=== PATIENT | female | born 1935 | race American Indian/Alaskan Native ===

== ENCOUNTER 2018-12-17 12:22 | Inpatient (IN) | payer MEDICARE ==
--- NOTE | 2018-12-17 13:42 | Emergency Department Report ---
ED Altered Mental Status HPI - General Chief Complaint: Altered Mental Status Stated Complaint: AMS Time Seen by Provider: 12/17/18 12:54 Source: EMS Mode of arrival: Stretcher Limitations: No Limitations - History of Present Illness Initial Comments: 83-year-old female the past medical history hypertension, [id number]-edyhtitis diabetes, and dementia presents to Hospital with complaints of possible alteration in mental status. Patient is oriented to self only. She was sent here by the [facility] because INSTRUMENT TECHNICIAN state patient was acting different. No one is at bedside to confirm patient's baseline mental status given her history of Alzheimer's dementia. Patient denies any complaints and states she feels fine. She was sent with her MAR from the [facility]. EMS noted bradycardia as documented on triage note however, patient does take metoprolol 50 mg twice a day and does not have signs of hypotension upon arrival. at 2:45p I called the number for [facility] provided at [phone] and the nu mber is disconnected I called the cell number listed at [phone] and was provided the number [phone] for the [facility] and was able to speak to FAUSTINA Hammonds (on secon call attempt) who is the health transportation dispatch manager. She states patient was resting on the couch while she was passing out snacks. Then she noticed that patient was not responding. Patient's eyes were closed, she had generalized weakness, and was not speaking. There was no change despite tactile and verbal stimuli. This continued until EMS arrival. She states patient is often confused and alert and oriented to self only at Baseline and is typically very talkative. I requested for registration to update [facility] phone number. - Related Data Home Medications Medication Instructions Recorded Confirmed Last Taken Alendronate Sodium 35 mg PO QWEEK 12/17/18 12/17/18 12/16/18 Amlodipine Besylate [Norvasc] 5 mg PO QDAY 12/17/18 12/17/18 12/17/18 Cholecalciferol (Vitamin D3) 2,000 unit PO QDAY 12/17/18 12/17/18 Unknown [Vitamin D3 2,000 UNIT CAP] Lisinopril [Zestril] 5 mg PO QDAY 12/17/18 12/17/18 12/17/18 Memantine HCl/Donepezil HCl 1 each PO QDAY 12/17/18 12/17/18 12/17/18 [Namzaric 28 mg-10 mg Capsule] Metoprolol [Lopressor] 25 mg PO BID 12/17/18 12/17/18 12/17/18 08:00 Multivit-Min/Iron/Folic/Lutein 1 each PO DAILY 12/17/18 12/17/18 12/17/18 [Multivitamin Women 50 Plus Tab] QUEtiapine [SEROquel] 25 mg PO HS 12/17/18 12/17/18 Unknown Simvastatin 20 mg PO DAILY 12/17/18 12/17/18 Unknown Spironolactone [Aldactone] 25 mg PO QDAY 12/17/18 12/17/18 Unknown metFORMIN XR [Glucophage XR] 1,000 mg PO QDAY 12/17/18 12/17/18 Unknown Allergies Allergy/AdvReac Type Severity Reaction Status Date / Time No Known Allergies Allergy Unverified 12/17/18 12:42 ED Review of Systems ROS: Stated complaint: AMS Other details as noted in HPI Comment: All other systems reviewed and negative ED Past Medical Hx - Past Medical History Hx Hypertension: Yes Hx CVA: Yes Hx Diabetes: Yes Additional medical history: Alzheimers - Social History Smoking Status: Never Smoker Substance Use Type: None - Medications Home Medications: Home Medications Medication Instructions Recorded Confirmed Last Taken Type Alendronate Sodium 35 mg PO QWEEK 12/17/18 12/17/18 12/16/18 History Amlodipine Besylate [Norvasc] 5 mg PO QDAY 12/17/18 12/17/18 12/17/18 History Cholecalciferol (Vitamin D3) 2,000 unit PO QDAY 12/17/18 12/17/18 Unknown History [Vitamin D3 2,000 UNIT CAP] Lisinopril [Zestril] 5 mg PO QDAY 12/17/18 12/17/18 12/17/18 History Memantine HCl/Donepezil HCl 1 each PO QDAY 12/17/18 12/17/18 12/17/18 History [Namzaric 28 mg-10 mg Capsule] Metoprolol [Lopressor] 25 mg PO BID 12/17/18 12/17/18 12/17/18 08:00 History Multivit-Min/Iron/Folic/Lutein 1 each PO DAILY 12/17/18 12/17/18 12/17/18 History [Multivitamin Women 50 Plus Tab] QUEtiapine [SEROquel] 25 mg PO HS 12/17/18 12/17/18 Unknown History Simvastatin 20 mg PO DAILY 12/17/18 12/17/18 Unknown History Spironolactone [Aldactone] 25 mg PO QDAY 12/17/18 12/17/18 Unknown History metFORMIN XR [Glucophage XR] 1,000 mg PO QDAY 12/17/18 12/17/18 Unknown History ED Physical Exam - General Limitations: No Limitations - Other Other exam information: General: No limitations, patient is alert in no acute distress Head exam: Atraumatic, normocephalic Eyes exam: Normal appearance, pupils equal reactive to light, extraocular movements intact ENT: Moist mucous membrane, normal oropharynx Neck exam: Normal inspection, full range of motion, no meningismus nontender Respiratory exam: Clear to auscultation bilateral, no wheezes, rales, crackles Cardiovascular: Normal rate and rhythm, normal heart sounds Abdomen: Soft, nondistended, and nontender, with normal bowel sounds, no rebound, or guarding Extremity: Full range of motion normal inspection no deformity Back: Normal Inspection, full range of motion, no tenderness Neurologic: Alert, oriented x1, cranial nerves intact, no motor or sensory deficit Psychiatric: normal affect, normal mood Skin: Warm, dry, intact - Assessment Assessment Interval: Baseline - Level of Consciousness 1a. Level of Consciousness: alert/keenly responsive - LOC Questions 1b. LOC Questions: answers 1 question correctly - LOC Command 1c. LOC Commands: performs tasks correctly - Best Gaze 2. Best Gaze: normal - Visual 3. Visual: no visual loss - Facial Palsy 4. Facial Palsy: normal symmetrical movement - Motor Arm 5a. Motor Arm Left: no drift 5b. Motor Arm Right: no drift - Motor Leg 6a. Motor Leg Left: no drift 6b. Motor Leg Right: no drift (pt has baseine memory deficit) - Limb Ataxia 7. Limb Ataxia: absent - Sensory 8. Sensory: normal - Best Language 9. Best Language: no aphasia - Dysarthria 10. Dysarthria: normal - Extinction and Inattention 11. Extinction/Inattention: no abnormality - Scoring Total Score: 1 Stroke Severity: Minor Stroke ED Course Vital Signs 12/17/18 12/17/18 12/17/18 12:34 12:37 12:45 Temperature 98.2 F Pulse Rate 49 L 50 L Respiratory 9 L 15 8 L Rate Blood Pressure 206/71 Blood Pressure 206/71 [Left] O2 Sat by Pulse 100 100 Oximetry 12/17/18 12/17/18 12/17/18 13:01 13:15 13:30 Temperature Pulse Rate 48 L 54 L 51 L Respiratory 9 L 13 11 L Rate Blood Pressure 162/60 206/71 199/80 Blood Pressure [Left] O2 Sat by Pulse 100 96 100 Oximetry 12/17/18 12/17/18 12/17/18 13:45 14:01 14:15 Temperature Pulse Rate 55 L 57 L 52 L Respiratory 11 L 12 12 Rate Blood Pressure 200/75 181/66 188/67 Blood Pressure [Left] O2 Sat by Pulse 100 99 100 Oximetry 12/17/18 12/17/18 12/17/18 14:31 14:45 15:00 Temperature Pulse Rate 55 L 52 L 52 L Respiratory 11 L 10 L 8 L Rate Blood Pressure 193/82 181/64 173/66 Blood Pressure [Left] O2 Sat by Pulse 100 100 99 Oximetry 12/17/18 12/17/18 12/17/18 15:33 15:45 16:01 Temperature Pulse Rate 58 L 55 L 54 L Respiratory 19 15 11 L Rate Blood Pressure 173/66 173/66 216/94 Blood Pressure [Left] O2 Sat by Pulse 91 98 Oximetry 12/17/18 12/17/18 12/17/18 16:15 16:30 16:45 Temperature Pulse Rate 57 L 52 L 52 L Respiratory 10 L 11 L 12 Rate Blood Pressure 216/94 204/78 189/75 Blood Pressure [Left] O2 Sat by Pulse 100 99 100 Oximetry 12/17/18 12/17/18 12/17/18 17:00 17:15 17:30 Temperature Pulse Rate 53 L 54 L 55 L Respiratory 13 10 L 10 L Rate Blood Pressure 194/75 213/82 209/86 Blood Pressure [Left] O2 Sat by Pulse 100 96 98 Oximetry 12/17/18 12/17/18 12/17/18 17:45 18:01 18:15 Temperature Pulse Rate 53 L 59 L 56 L Respiratory 16 17 14 Rate Blood Pressure 195/68 202/80 181/74 Blood Pressure [Left] O2 Sat by Pulse 97 98 100 Oximetry 12/17/18 18:31 Temperature Pulse Rate 54 L Respiratory 16 Rate Blood Pressure 196/79 Blood Pressure [Left] O2 Sat by Pulse 96 Oximetry - Lab Data Result diagrams: 12/17/18 13:25 12/17/18 13:25 Lab Results 12/17/18 12/17/18 12/17/18 Range/Units 13:20 13:25 13:25 WBC 6.4 (4.5-11.0) K/mm3 RBC 3.77 (3.65-5.03) M/mm3 Hgb 12.1 (10.1-14.3) gm/dl Hct 36.8 (30.3-42.9) % MCV 98 H (79-97) fl MCH 32 (28-32) pg MCHC 33 (30-34) % RDW 14.0 (13.2-15.2) % Plt Count 301 (140-440) K/mm3 Lymph % (Auto) 38.0 H (13.4-35.0) % [place] % (Auto) 10.1 H (0.0-7.3) % Eos % (Auto) 2.4 (0.0-4.3) % Baso % (Auto) 1.3 (0.0-1.8) % Lymph # 2.5 (1.2-5.4) K/mm3 [place] # 0.7 (0.0-0.8) K/mm3 Eos # 0.2 (0.0-0.4) K/mm3 Baso # 0.1 (0.0-0.1) K/mm3 Seg Neutrophils % 48.2 (40.0-70.0) % Seg Neutrophils # 3.1 (1.8-7.7) K/mm3 Sodium 143 (137-145) mmol/L Potassium 4.6 (3.6-5.0) mmol/L Chloride 104.0 (98-107) mmol/L Carbon Dioxide 27 (22-30) mmol/L Anion Gap 17 mmol/L BUN 25 H (7-17) mg/dL Creatinine 1.1 (0.7-1.2) mg/dL Estimated GFR 57 ml/min BUN/Creatinine Ratio 23 % Glucose 126 H (65-100) mg/dL POC Glucose 146 H (70-105) Calcium 9.2 (8.4-10.2) mg/dL Magnesium 2.30 (1.7-2.3) mg/dL Total Bilirubin 0.20 (0.1-1.2) mg/dL AST 28 (5-40) units/L ALT 19 (7-56) units/L Alkaline Phosphatase 87 (35-129) units/L Troponin T < 0.010 (0.00-0.029) ng/mL Total Protein 7.7 (6.3-8.2) g/dL Albumin 4.0 (3.9-5) g/dL Albumin/Globulin Ratio 1.1 % TSH (0.270-4.200) mlU/mL Free T4 (0.76-1.46) ng/dL Urine Color (Yellow) Urine Turbidity (Clear) Urine pH (5.0-7.0) Ur Specific [place] (1.003-1.030) Urine Protein (Negative) mg/dL Urine Glucose (UA) (Negative) mg/dL Urine Ketones (Negative) mg/dL Urine Blood (Negative) Urine Nitrite (Negative) Urine Bilirubin (Negative) Urine Urobilinogen (<2.0) mg/dL Ur Leukocyte Esterase (Negative) Urine WBC (Auto) (0.0-6.0) /HPF Urine RBC (Auto) (0.0-6.0) /HPF U Epithel Cells (Auto) (0-13.0) /HPF Urine Mucus /HPF Salicylates (2.8-20.0) mg/dL Acetaminophen (10.0-30.0) ug/mL Plasma/Serum Alcohol (0-0.07) % 12/17/18 12/17/18 12/17/18 Range/Units 13:25 13:25 13:25 WBC (4.5-11.0) K/mm3 RBC (3.65-5.03) M/mm3 Hgb (10.1-14.3) gm/dl Hct (30.3-42.9) % MCV (79-97) fl MCH (28-32) pg MCHC (30-34) % RDW (13.2-15.2) % Plt Count (140-440) K/mm3 Lymph % (Auto) (13.4-35.0) % [place] % (Auto) (0.0-7.3) % Eos % (Auto) (0.0-4.3) % Baso % (Auto) (0.0-1.8) % Lymph # (1.2-5.4) K/mm3 [place] # (0.0-0.8) K/mm3 Eos # (0.0-0.4) K/mm3 Baso # (0.0-0.1) K/mm3 Seg Neutrophils % (40.0-70.0) % Seg Neutrophils # (1.8-7.7) K/mm3 Sodium (137-145) mmol/L Potassium (3.6-5.0) mmol/L Chloride (98-107) mmol/L Carbon Dioxide (22-30) mmol/L Anion Gap mmol/L BUN (7-17) mg/dL Creatinine (0.7-1.2) mg/dL Estimated GFR ml/min BUN/Creatinine Ratio % Glucose (65-100) mg/dL POC Glucose (70-105) Calcium (8.4-10.2) mg/dL Magnesium (1.7-2.3) mg/dL Total Bilirubin (0.1-1.2) mg/dL AST (5-40) units/L ALT (7-56) units/L Alkaline Phosphatase (35-129) units/L Troponin T (0.00-0.029) ng/mL Total Protein (6.3-8.2) g/dL Albumin (3.9-5) g/dL Albumin/Globulin Ratio % TSH (0.270-4.200) mlU/mL Free T4 (0.76-1.46) ng/dL Urine Color (Yellow) Urine Turbidity (Clear) Urine pH (5.0-7.0) Ur Specific [place] (1.003-1.030) Urine Protein (Negative) mg/dL Urine Glucose (UA) (Negative) mg/dL Urine Ketones (Negative) mg/dL Urine Blood (Negative) Urine Nitrite (Negative) Urine Bilirubin (Negative) Urine Urobilinogen (<2.0) mg/dL Ur Leukocyte Esterase (Negative) Urine WBC (Auto) (0.0-6.0) /HPF Urine RBC (Auto) (0.0-6.0) /HPF U Epithel Cells (Auto) (0-13.0) /HPF Urine Mucus /HPF Salicylates < 0.3 L (2.8-20.0) mg/dL Acetaminophen < 5.0 L (10.0-30.0) ug/mL Plasma/Serum Alcohol < 0.01 (0-0.07) % 12/17/18 12/17/18 Range/Units 13:25 14:28 WBC (4.5-11.0) K/mm3 RBC (3.65-5.03) M/mm3 Hgb (10.1-14.3) gm/dl Hct (30.3-42.9) % MCV (79-97) fl MCH (28-32) pg MCHC (30-34) % RDW (13.2-15.2) % Plt Count (140-440) K/mm3 Lymph % (Auto) (13.4-35.0) % [place] % (Auto) (0.0-7.3) % Eos % (Auto) (0.0-4.3) % Baso % (Auto) (0.0-1.8) % Lymph # (1.2-5.4) K/mm3 [place] # (0.0-0.8) K/mm3 Eos # (0.0-0.4) K/mm3 Baso # (0.0-0.1) K/mm3 Seg Neutrophils % (40.0-70.0) % Seg Neutrophils # (1.8-7.7) K/mm3 Sodium (137-145) mmol/L Potassium (3.6-5.0) mmol/L Chloride (98-107) mmol/L Carbon Dioxide (22-30) mmol/L Anion Gap mmol/L BUN (7-17) mg/dL Creatinine (0.7-1.2) mg/dL Estimated GFR ml/min BUN/Creatinine Ratio % Glucose (65-100) mg/dL POC Glucose (70-105) Calcium (8.4-10.2) mg/dL Magnesium (1.7-2.3) mg/dL Total Bilirubin (0.1-1.2) mg/dL AST (5-40) units/L ALT (7-56) units/L Alkaline Phosphatase (35-129) units/L Troponin T (0.00-0.029) ng/mL Total Protein (6.3-8.2) g/dL Albumin (3.9-5) g/dL Albumin/Globulin Ratio % TSH 1.830 (0.270-4.200) mlU/mL Free T4 1.07 (0.76-1.46) ng/dL Urine Color Yellow (Yellow) Urine Turbidity Slightly-cloudy (Clear) Urine pH 7.0 (5.0-7.0) Ur Specific [place] 1.014 (1.003-1.030) Urine Protein 30 mg/dl (Negative) mg/dL Urine Glucose (UA) 50 (Negative) mg/dL Urine Ketones Neg (Negative) mg/dL Urine Blood Neg (Negative) Urine Nitrite Pos (Negative) Urine Bilirubin Neg (Negative) Urine Urobilinogen < 2.0 (<2.0) mg/dL Ur Leukocyte Esterase Neg (Negative) Urine WBC (Auto) < 1.0 (0.0-6.0) /HPF Urine RBC (Auto) 2.0 (0.0-6.0) /HPF U Epithel Cells (Auto) < 1.0 (0-13.0) /HPF Urine Mucus Few /HPF Salicylates (2.8-20.0) mg/dL Acetaminophen (10.0-30.0) ug/mL Plasma/Serum Alcohol (0-0.07) % - EKG Data -: EKG Interpreted by Mi EKG shows normal: sinus rhythm, axis (qrs 40), QRS complexes (qrsd 85), ST-T waves (non-specific t abnl) Rate: bradycardia (51) When compared to previous EKG there are: previous EKG unavailable - Radiology Data Radiology results: report reviewed (ct head) CT head without contrast HISTORY: Altered Mental Status. TECHNIQUE: Axial imagin g performed from the skull apex through the skull base without the use of contrast. All CT scans at this location are performed using CT dose reduction for ALARA by means of automated exposure control. COMPARISON: None FINDINGS: Parenchyma: No acute intracranial hemorrhage or parenchymal abnormality. There is mild diffuse hypoattenuation of the white matter consistent with chronic microvascular ischemic disease. A 1.2 cm chronic focal infarct is identified in the right subinsular region. No large chronic infarct. No evidence for hemorrhage or large area of acute ischemia. Ventricles: There is mild diffuse brain atrophy with commensurate ventricular enlargement which is likely age appropriate. Soft tissues: Soft tissues including the orbits appear normal. Bones: No acute osseous abnormality. Sinuses: Sinuses and mastoid air cells are clear. IMPRESSION: Volume loss and chronic white matter changes. Chronic focal infarct in the right subinsular region. No acute intracranial process is brown ntified. - Medical Decision Making Patient had transient alteration in awareness prior to arrival but appears to be currently at baseline. Urine is nitrate positive with a leukocytosis. Culture pending and patient will be treated Rocephin for UTI. Bradycardia cardio noted and likely secondary to beta brenton use. No hypotension noted. Case discussed with hospitalist Dr. Acharya for admission after CT head results. - Differential Diagnosis dementia, delirium, UTI, encephalopathy Critical Care Time: No Critical care attestation.: If time is entered above; I have spent that time in minutes in the direct care of this critically ill patient, excluding procedure time. ED Disposition Clinical Impression: Transient alteration of awareness, Bradycardia, Dementia Disposition: OP ADMIT IP TO THIS HOSP Is pt being admited?: Yes Condition: Stable Time of Disposition: 16:00
[2018-12-17 14:00] LABS: Basophils # (Auto) 0.1 K/mm3 (0.0-0.1); Basophils % (Auto) 1.3 % (0.0-1.8); Eosinophils # (Auto) 0.2 K/mm3 (0.0-0.4); Eosinophils % (Auto) 2.4 % (0.0-4.3); Hematocrit 36.8 % (30.3-42.9); Hemoglobin 12.1 gm/dl (10.1-14.3); Lymphocytes # (Auto) 2.5 K/mm3 (1.2-5.4); Mean Corpuscular HGB Conc 33 % (30-34); Mean Corpuscular Volume 98 fl (79-97); Monocytes # (Auto) 0.7 K/mm3 (0.0-0.8); Monocytes % (Auto) 10.1 % (0.0-7.3); Platelet Count 301 K/mm3 (140-440); Red Blood Count 3.77 M/mm3 (3.65-5.03)
[2018-12-17 14:18] LABS: Alanine Aminotransferase 19 units/L (7-56); BUN/Creatinine Ratio 23; Blood Urea Nitrogen 25 mg/dL (7-17); Calcium 9.2 mg/dL (8.4-10.2); Hemolysis Index 47
[2018-12-17 14:25] LABS: Free T4 (Free Thyroxine) 1.07 ng/dL (0.76-1.46)
[2018-12-17 14:58] LABS: Bilirubin,Urine NEG (Negative); Blood,Urine NEG (Negative); Color,Urine Yellow (Yellow); Mucus,Urine FEW /HPF; Urobilinogen,Urine < 2.0 mg/dL (<2.0); WBC,Urine < 1.0 /HPF (0.0-6.0)
[2018-12-17] MEDS ORDERED: ROCEPHIN/NS 1 GM/50 ML 1 GM/50 ML BAG IV ONE (15:18)
--- NOTE | 2018-12-17 15:28 | History and Physical Report ---
History of Present Illness Chief complaint: She could not talk, and was confused History of present illness: 83 YO Female Assisted Living Facility Resident with HTN, DM, Alzheimers Dementia, CVA, Debility presents to ED for evaluation. Pt is confused with Dementia and unable to provide detailed history. Pt history taken from ED staff, as well as LONG TERM staff. As per ALS staff, the patient was in her usual state of health upon waking this morning around 0800 hrs. Pt was noticed by LONG TERM staff to be lying on the couch, unresponsive, unable to speak around lunchtime. EMS notified, and uopn arrival the patient was found to be in distress and transported to [facility]. Pt seen and evaluated in ED and a code stroke was called. Pt found to have symptoms consistent with CVA, as well as Encephalopathy, UTI, and Hypertensive Urgency with SBP of 216/94. Pt admitted to telemetry and initiated on CVA protocol with permissive HTN overnight. No further history obtainable. Neurology consulted in ED. Past History Past Medical History: diabetes, hypertension, stroke, other (Dementia) Past Surgical History: No surgical history, Other (UTO) Social history: single Family history: no significant family history (UTO) Medications and Allergies Allergies Allergy/AdvReac Type Severity Reaction Status Date / Time No Known Allergies Allergy Unverified 12/17/18 12:42 Active Meds: Active Medications Ceftriaxone Sodium (Rocephin/Ns 1 Gm/50 Ml) 1 gm in 50 mls @ 100 mls/hr IV ONCE ONE; Protocol Stop: 12/17/18 15:47 Review of Systems ROS unobtainable: due to mental status Exam - Constitutional Vitals: Temp Pulse Resp BP Pulse Ox 98.2 F 52 L 8 L 173/66 99 12/17/18 12:37 12/17/18 15:00 12/17/18 15:00 12/17/18 15:00 12/17/18 15:00 General appearance: Present: mild distress, cachectic - EENT Eyes: Present: PERRL ENT: hearing intact, clear oral mucosa - Neck Neck: Present: supple, normal ROM - Respiratory Respiratory effort: normal Respiratory: bilateral: CTA - Cardiovascular Heart Sounds: Present: S1 & S2. Absent: rub, click - Extremities Extremities: pulses symmetrical, No edema Peripheral Pulses: within normal limits - Abdominal General gastrointestinal: Present: soft, non-tender, non-distended, normal bowel sounds Female genitourinary: Present: normal - Integumentary Integumentary: Present: clear, warm, dry - Musculoskeletal Musculoskeletal: generalized weakness - Psychiatric Psychiatric: no appropriate mood/affect, no intact judgment & insight, no memory intact - Neurologic Neurologic: CNII-XII intact, moves all extremities, no gait normal Results - Labs CBC & Chem 7: 12/17/18 13:25 12/17/18 13:25 Labs: Abnormal lab results 12/17/18 12/17/18 12/17/18 Range/Units 13:20 13:25 13:25 MCV 98 H (79-97) fl Lymph % (Auto) 38.0 H (13.4-35.0) % [place] % (Auto) 10.1 H (0.0-7.3) % BUN 25 H (7-17) mg/dL Glucose 126 H (65-100) mg/dL POC Glucose 146 H (70-105) Salicylates (2.8-20.0) mg/dL Acetaminophen (10.0-30.0) ug/mL 12/17/18 12/17/18 Range/Units 13:25 13:25 MCV (79-97) fl Lymph % (Auto) (13.4-35.0) % [place] % (Auto) (0.0-7.3) % BUN (7-17) mg/dL Glucose (65-100) mg/dL POC Glucose (70-105) Salicylates < 0.3 L (2.8-20.0) mg/dL Acetaminophen < 5.0 L (10.0-30.0) ug/mL Assessment and Plan - Patient Problems (1) CVA (cerebral vascular accident) Current Visit: Yes Status: Acute Qualifiers: Laterality of affected vessel: unspecified Plan to address problem: Stroke Protocol: CT Head, Neuro check, MRI Brain, MRA Brain, Echo, Carotid doppler, Neurology consulted, PT/OT/Speech therapy, lipid panel, statin therapy, antiplatelet therapy, Case management consult for D/C planning/Placement. (2) Encephalopathy Current Visit: Yes Status: Acute Plan to address problem: CT Head, neuro check, seizure precautions, aspiration precautions, supportive care, (3) Hypertensive urgency Current Visit: Yes Status: Acute Plan to address problem: Permissive hypertension overnight. goal systolic BP overnight 170-190, IV hydralazine prn, neuro checks, (4) UTI (urinary tract infection) Current Visit: Yes Status: Acute Qualifiers: Encounter type: initial encounter Plan to address problem: IV antibiotic therapy, CBC, CMP, Urinalysis (5) Diabetes Current Visit: Yes Status: Acute Plan to address problem: ADA diet, insulin, accu check, hypoglycemia protocol (6) Debility Current Visit: Yes Status: Acute Plan to address problem: PT consulted/OT consulted, supportive care. (7) Bradycardia Current Visit: Yes Status: Acute Plan to address problem: Heart rate between 50-60 beats/min. Admit to telemetry, Echo, remote telemetry, thrroid panel, supportive care. (8) DVT prophylaxis Current Visit: Yes Status: Acute Plan to address problem: SCD to BLE while in bed, DVT prophylaxis with lovenox
--- NOTE | 2018-12-17 15:51 | Cat Scan Report ---
CT head without contrast HISTORY: Altered Mental Status. TECHNIQUE: Axial imaging performed from the skull apex through the skull base without the use of con trast. All CT scans at this location are performed using CT dose reduction for ALARA by means of aut omated exposure control. COMPARISON: None FINDINGS: Parenchyma: No acute intracranial hemorrhage or parenchymal abnormality. There is mild diffuse hypoa ttenuation of the white matter consistent with chronic microvascular ischemic disease. A 1.2 cm chron ic focal infarct is identified in the right subinsular region. No large chronic infarct. No evidence for hemorrhage or large area of acute ischemia. Ventricles: There is mild diffuse brain atrophy with commensurate ventricular enlargement which is l ikely age appropriate. Soft tissues: Soft tissues including the orbits appear normal. Bones: No acute osseous abnormality. Sinuses: Sinuses and mastoid air cells are clear. IMPRESSION: Volume loss and chronic white matter changes. Chronic focal infarct in the right subinsul ar region. No acute intracranial process is identified. Signer Name: Jey Buck Jr, MD Signed: 12/17/2018 3:47 PM Workstation Name: [id number]
[2018-12-17] MEDS ORDERED: APRESOLINE IV PRN (16:34)
[2018-12-17] MEDS ORDERED: SODIUM CHLORIDE FLUSH SYRINGE 10 ML IV PRN (16:39)
[2018-12-17] MEDS ORDERED: MILK OF MAGNESIA PO PRN (16:39)
[2018-12-17] MEDS ORDERED: PROVENTIL IH PRN (16:39)
[2018-12-17] MEDS ORDERED: ZOFRAN IV PRN (16:39)
[2018-12-17] MEDS ORDERED: DULCOLAX PR PRN (16:39)
[2018-12-17] MEDS ORDERED: TYLENOL PO PRN (16:39)
[2018-12-17] MEDS ORDERED: REGLAN PO PRN (16:39)
[2018-12-17] MEDS ORDERED: PHENERGAN PR PRN (16:39)
[2018-12-17] MEDS: PRAVACHOL PO SCH (21:31)
[2018-12-17] MEDS ORDERED: BENADRYL PO PRN (22:04)
[2018-12-18] MEDS: ROCEPHIN/NS 1 GM/50 ML 1 GM/50 ML BAG IV SCH (10:00)
--- NOTE | 2018-12-18 10:11 | Vascular Lab Report ---
"DUPLEX DOPPLER ULTRASOUND CAROTID, BILATERAL INDICATION: stroke. FINDINGS: RIGHT CAROTID: Mild plaque in the carotid bulb. Right CCA velocity: 85 cm/sec. Right ICA peak systolic velocity: 69 cm/sec. ICA/CCA PSV Ratio: 0.81. Right Vertebral Artery: Antegrade flow. LEFT CAROTID: Mild plaque in the carotid bulb. Left CCA velocity: 77 cm/sec. Left ICA peak systolic velocity: 93 cm/sec. ICA/CCA PSV Ratio: 1.2. Left Vertebral Artery: Antegrade flow. IMPRESSION: 1. Right Internal Carotid Artery: Less than 50% diameter stenosis. 2. Left Internal Carotid Artery: Less than 50% diameter stenosis. Velocity criteria are extrapolated from diameter data as defined by the Society of Radiologists in Ul trasound Consensus Conference, Radiology 2003; 229;340-346. Degree of Stenosis (%) || ICA PSV (cm/sec) || Plaque estimate (%) || ICA/CCA PSV Ratio Normal <125 None <2.0 <50 <125 <50 <2.0 50-69 125-230 50 2.0-4.0 70 but less than 100 >230 50 >4.0 Near occlusion High, low, or none visible variable Total occlusion None visible; no lumen N/A Signer Name: Rony Vargas MD Signed: 12/18/2018 10:07 AM Workstation Name: [id number]
--- NOTE | 2018-12-18 11:21 | Consultation ---
Past History Past Medical History: diabetes, hypertension, stroke, other (Dementia) Past Surgical History: No surgical history, Other (UTO) Social history: single Family history: no significant family history (UTO) Medications and Allergies Allergies Allergy/AdvReac Type Severity Reaction Status Date / Time No Known Allergies Allergy Unverified 12/17/18 12:42 Home Medications Medication Instructions Recorded Confirmed Last Taken Type Alendronate Sodium 35 mg PO QWEEK 12/17/18 12/17/18 12/16/18 History Amlodipine Besylate [Norvasc] 5 mg PO QDAY 12/17/18 12/17/18 12/17/18 History Cholecalciferol (Vitamin D3) 2,000 unit PO QDAY 12/17/18 12/17/18 Unknown History [Vitamin D3 2,000 UNIT CAP] Lisinopril [Zestril] 5 mg PO QDAY 12/17/18 12/17/18 12/17/18 History Memantine HCl/Donepezil HCl 1 each PO QDAY 12/17/18 12/17/18 12/17/18 History [Namzaric 28 mg-10 mg Capsule] Metoprolol [Lopressor] 25 mg PO BID 12/17/18 12/17/18 12/17/18 08:00 History Multivit-Min/Iron/Folic/Lutein 1 each PO DAILY 12/17/18 12/17/18 12/17/18 History [Multivitamin Women 50 Plus Tab] QUEtiapine [SEROquel] 25 mg PO HS 12/17/18 12/17/18 Unknown History Simvastatin 20 mg PO DAILY 12/17/18 12/17/18 Unknown History Spironolactone [Aldactone] 25 mg PO QDAY 12/17/18 12/17/18 Unknown History metFORMIN XR [Glucophage XR] 1,000 mg PO QDAY 12/17/18 12/17/18 Unknown History Active Meds: Active Medications Acetaminophen (Tylenol) 650 mg PO Q4H PRN PRN Reason: Pain, Mild (1-3) Albuterol (Proventil) 2.5 mg IH Q3HRT PRN PRN Reason: Shortness Of Breath Bisacodyl (Dulcolax) 10 mg MD QDAY PRN PRN Reason: Constipation Diphenhydramine HCl (Benadryl) 25 mg PO Q8H PRN PRN Reason: Itching; Sleep Last Admin: 12/17/18 23:00 Dose: 25 mg Documented by: Hydralazine HCl (Apresoline) 5 mg IV Q4HR PRN PRN Reason: Hypertension Ceftriaxone Sodium (Rocephin/Ns 1 Gm/50 Ml) 1 gm in 50 mls @ 100 mls/hr IV Q24HR [facility]; Protocol Stop: 12/19/18 23:59 Magnesium Hydroxide (Milk Of Magnesia) 30 ml PO Q4H PRN PRN Reason: Constipation Metoclopramide HCl (Reglan) 10 mg PO Q6H PRN PRN Reason: Nausea And Vomiting Ondansetron HCl (Zofran) 4 mg IV Q8H PRN PRN Reason: Nausea And Vomiting Pravastatin Sodium (Pravachol) 20 mg PO QHS [facility] Last Admin: 12/17/18 21:31 Dose: 20 mg Documented by: Promethazine HCl (Phenergan) 25 mg MD Q6H PRN PRN Reason: Nausea And Vomiting Sodium Chloride (Sodium Chloride Flush Syringe 10 Ml) 10 ml IV PRN PRN PRN Reason: LINE FLUSH Physical Examination - Vital Signs Vital Signs: Vital Signs Resp 9 L 12/17/18 12:34 Results - Laboratory Findings CBC and BMP: 12/17/18 13:25 12/17/18 13:25 Abnormal Lab Findings: Abnormal Labs 12/17/18 12/17/18 12/17/18 13:20 13:25 13:25 MCV 98 H Lymph % (Auto) 38.0 H [place] % (Auto) 10.1 H BUN 25 H Glucose 126 H POC Glucose 146 H Salicylates Acetaminophen 12/17/18 12/17/18 13:25 13:25 MCV Lymph % (Auto) [place] % (Auto) BUN Glucose POC Glucose Salicylates < 0.3 L Acetaminophen < 5.0 L Assessment and Plan Cora Garcia is an 83-year-old female with a history of dementia, hypertension and diabetes and also old stroke on the right hemisphere without any significant residual effect on the left side who was brought to the hospital on 12/17/2018 on account of sudden unresponsiveness. Patient lives in an assisted living facility with excellent family support. Certified nurse career services assistant on the assisted living place from her distributing group restore her friends sitting on the couch and suddenly she became unresponsive. There is no report of shaking of extremities. Patient came back to herself and was lethargic and could not stand by herself. EMS was called and brought to the hospital. While in the hospital she was found to have mild bradycardia at a heart rate of 51 and all other workup were negative she did not have any electrolyte imbalance or any evidence of infection she had a CT scan of the brain done who showed old infarct in the right insular region. There was no acute finding in the CT scan. Patient's mental status became normal moment before she arrived in the hospital. After being admitted to the hospital she did not have any recurrence of events such as loss of consciousness or impaired consciousness or any episode of confusion. Physical examination. Patient is alert and appropriate. She has some insight into her problems and answers questions appropriately. She knows where she is she knows who is the president although she could not name but her description of the president was a correct one. She had clear understanding of what was going on with her and that she was brought to the hospital to find out what went wrong. Her family dynamics as well as social dynamics were normal and at her baseline. Formal memory testing was not done as patient carries a diagnosis of dementia and is on Dilantin for many years without any worsening of her mental status. Heart-normal rate and rhythm. Carotid is palpable. No bruit. Cranial nerves. All cranial nerves are within normal limit. There is no facial asymmetry. Pupils reacted to light and accommodation. Extraocular movement was intact. Other cranial nerves are within normal limits. Motor. No asymmetry of strength was noted between extremities patient has mild generalized weakness. Coordination. Normal. Reflexes. There is generalized hyporeflexia with bilateral downgoing toes. Sensory patient had decreased sensation to pinprick in both feet up to few inch es into the legs and had decreased vibratory sensation in both feet. Impression. Episode of sudden unresponsiveness could be sleep attack. Does not seem to be seizures without any postictal symptoms. Patient also has evidence of peripheral neuropathy most likely from chronic diabetes and vitamin B12 deficiency. She has increased MCV which suggests B12 deficiency. Plan/recommendation. #1 patient should be given vitamin B12 injection thousand micrograms IM once a month #2 continue Namenda as prescribed. #3 patient should be started on aspirin 81 mg by mouth daily. #4. From a neurological standpoint patient can be discharged back to assisted living facility.
--- NOTE | 2018-12-18 12:55 | Magnetic Resonance Report ---
MRI BRAIN 12/18/2018 INDICATION / CLINICAL INFORMATION: Stroke.. Altered mental status TECHNIQUE: Multiplanar, multisequence MR images of the brain were obtained. COMPARISON: CT head 12/17/2018 FINDINGS: BRAIN / INTRACRANIAL CONTENTS: Unenhanced MR images of the brain demonstrate no evidence of acute int racranial abnormality. Ventricles and sulci are prominent in size, consistent with age-related atrophic change. Chronic whit e matter T2 weighted hyperintensities are present in the periventricular white matter of the cerebral hemispheres. There is a more focal area of subcortical chronic ischemic change in the vicinity of the right caudat e head right frontal periventricular white matter. Overall configuration is similar to that seen on t he prior CT scan. There are no abnormal extra-axial fluid collections. EXTRACRANIAL: Incidental note is made of chronic appearing left sphenoid sinus opacification. Otherwi se unremarkable. CRANIOCERVICAL JUNCTION: No significant abnormality. VASCULAR FLOW-VOIDS: No significant abnormality. IMPRESSION: No acute abnormality. Chronic age-related ischemic change. Signer Name: Luis Benito MD Signed: 12/18/2018 12:50 PM Workstation Name: [id number]
--- NOTE | 2018-12-18 12:59 | Magnetic Resonance Report ---
MRA HEAD 12/18/2018 INDICATION / CLINICAL INFORMATION: stroke. TECHNIQUE: Routine MRA of the head is performed. 3-D/MIP reformats postprocessed. COMPARISON: None available. FINDINGS: Image quality is somewhat limited by some patient motion artifact. Good flow signal is present in anterior posterior circulation vessels. There is some irregularity paula ng the course of the internal carotid arteries at the level of the cavernous sinuses bilaterally, sli ghtly more prominent on the left than on the right. Some intracranial irregularity along the branches of the middle cerebral arteries is also noted bilaterally. Sclerotic type irregularity along the course of the basilar artery and right posterior cerebral arter y is suspected, although motion artifact limits the reliability here. Depending on details of the cli nical circumstances, further evaluation with contrast-enhanced CT angiography may be helpful. IMPRESSION: Intracranial vascular irregularity as described above, suggestive of intracranial athero sclerotic change. Underlying motion artifact noted. Signer Name: Luis Benito MD Signed: 12/18/2018 12:54 PM Workstation Name: [id number]
--- NOTE | 2018-12-18 17:31 | Progress Note ---
Assessment and Plan Assessment and plan: --Acute CVA; not a candidate for TPA as the patient is outside the window of thrombolysis Extensive workup, negative, Continue aspirin and statin Neurology evaluation noted and appreciated Neuro Workup: CT head without contrast; chronic white matter changes chronic focal infarct no acute intracranial abnormality noted MRI : No acute abnormality chronic age-related ischemia MRA brain; intracranial vascular irregularities suggestive of intracranial arthrosclerotic change, motion artifact Carotid Doppler; less than 50% stenosis Echocardiogram; 55-60%, negative bubble study --Metabolic encephalopathy; present on admission Multifactorial, neuro symptoms, advanced age, sepsis Uncontrolled blood pressures Supportive care --Hypertensive emergency ;Present on admission Blood pressure is more than 200 systolic, no moderate controlContinue current antihypertensives and when necessary medications --Possible urinary tract infection; empiric antibiotics Follow cultures --Diabetes mellitus; Accu-Chek sliding scale: History dated back to insulin Oral hypoglycemics --Bradycardia; hold beta blockers, closely monitor Cardiology consult if needed --DVT prophylaxis; Lovenox Physical therapy occupational . Possible discharge in 1-2 days if stable Plan of care is reviewed with the patient and the son at the bedside History Interval history: Patient seen and examined medical records reviewed Patient feels better no new complaints Alert awake oriented, speech clear Vital signs reviewed Hospitalist Physical - Constitutional Vitals: Temp Pulse Resp BP Pulse Ox 98.2 F 65 18 166/73 100 12/18/18 03:53 12/18/18 11:00 12/18/18 03:53 12/18/18 03:53 12/18/18 16:39 General appearance: Present: no acute distress, well-nourished, cachectic - EENT Eyes: Present: PERRL, EOM intact - Neck Neck: Present: supple, normal ROM - Respiratory Respiratory effort: normal Respiratory: bilateral: diminished, negative: rales, rhonchi, wheezing - Cardiovascular Rhythm: regular Heart Sounds: Present: S1 & S2 - Extremities Extremities: no ischemia, No edema - Abdominal General gastrointestinal: soft, non-tender, non-distended, normal bowel sounds - Integumentary Integumentary: Present: clear, warm - Psychiatric Psychiatric: appropriate mood/affect, cooperative - Neurologic Neurologic: moves all extremities Results - Labs CBC & Chem 7: 12/17/18 13:25 12/17/18 13:25 Labs: Laboratory Last Values WBC 6.4 K/mm3 (4.5-11.0) 12/17/18 13:25 RBC 3.77 M/mm3 (3.65-5.03) 12/17/18 13:25 Hgb 12.1 gm/dl (10.1-14.3) 12/17/18 13:25 Hct 36.8 % (30.3-42.9) 12/17/18 13:25 MCV 98 fl (79-97) H 12/17/18 13:25 MCH 32 pg (28-32) 12/17/18 13:25 MCHC 33 % (30-34) 12/17/18 13:25 RDW 14.0 % (13.2-15.2) 12/17/18 13:25 Plt Count 301 K/mm3 (140-440) 12/17/18 13:25 Lymph % (Auto) 38.0 % (13.4-35.0) H 12/17/18 13:25 [place] % (Auto) 10.1 % (0.0-7.3) H 12/17/18 13:25 Eos % (Auto) 2.4 % (0.0-4.3) 12/17/18 13:25 Baso % (Auto) 1.3 % (0.0-1.8) 12/17/18 13:25 Lymph # 2.5 K/mm3 (1.2-5.4) 12/17/18 13:25 [place] # 0.7 K/mm3 (0.0-0.8) 12/17/18 13:25 Eos # 0.2 K/mm3 (0.0-0.4) 12/17/18 13:25 Baso # 0.1 K/mm3 (0.0-0.1) 12/17/18 13:25 Seg Neutrophils % 48.2 % (40.0-70.0) 12/17/18 13:25 Seg Neutrophils # 3.1 K/mm3 (1.8-7.7) 12/17/18 13:25 Sodium 143 mmol/L (137-145) 12/17/18 13:25 Potassium 4.6 mmol/L (3.6-5.0) 12/17/18 13:25 Chloride 104.0 mmol/L (98-107) 12/17/18 13:25 Carbon Dioxide 27 mmol/L (22-30) 12/17/18 13:25 17 mmol/L 12/17/18 13:25 BUN 25 mg/dL (7-17) H 12/17/18 13:25 1.1 mg/dL (0.7-1.2) 12/17/18 13:25 Estimated GFR 57 ml/min 12/17/18 13:25 23 % 12/17/18 13:25 Glucose 126 mg/dL (65-100) H 12/17/18 13:25 POC Glucose 214 (70-105) H 12/18/18 15:03 Calcium 9.2 mg/dL (8.4-10.2) 12/17/18 13:25 Magnesium 2.30 mg/dL (1.7-2.3) 12/17/18 13:25 0.20 mg/dL (0.1-1.2) 12/17/18 13:25 AST 28 units/L (5-40) 12/17/18 13:25 ALT 19 units/L (7-56) 12/17/18 13:25 87 units/L (35-129) 12/17/18 13:25 < 0.010 ng/mL (0.00-0.029) 12/17/18 13:25 7.7 g/dL (6.3-8.2) 12/17/18 13:25 4.0 g/dL (3.9-5) 12/17/18 13:25 1.1 % 12/17/18 13:25 TSH 1.830 mlU/mL (0.270-4.200) 12/17/18 13:25 Free T4 1.07 ng/dL (0.76-1.46) 12/17/18 13:25 Yellow (Yellow) 12/17/18 14:28 Slightly-cloudy (Clear) 12/17/18 14:28 7.0 (5.0-7.0) 12/17/18 14:28 Ur Specific [place] 1.014 (1.003-1.030) 12/17/18 14:28 30 mg/dl mg/dL (Negative) 12/17/18 14:28 50 mg/dL (Negative) 12/17/18 14:28 Neg mg/dL (Negative) 12/17/18 14:28 Neg (Negative) 12/17/18 14:28 Pos (Negative) 12/17/18 14:28 Neg (Negative) 12/17/18 14:28 < 2.0 mg/dL (<2.0) 12/17/18 14:28 Ur Leukocyte Esterase Neg (Negative) 12/17/18 14:28 < 1.0 /HPF (0.0-6.0) 12/17/18 14:28 2.0 /HPF (0.0-6.0) 12/17/18 14:28 U Epithel Cells (Auto) < 1.0 /HPF (0-13.0) 12/17/18 14:28 Few /HPF 12/17/18 14:28 Salicylates < 0.3 mg/dL (2.8-20.0) L 12/17/18 13:25 Acetaminophen < 5.0 ug/mL (10.0-30.0) L 12/17/18 13:25 Plasma/Serum Alcohol < 0.01 % (0-0.07) 12/17/18 13:25 Active Medications - Current Medications Current Medications: Generic Name Dose Route Start Last Admin Trade Name Freq PRN Reason Stop Dose Admin Acetaminophen 650 mg 12/17/18 16:39 Tylenol PO Q4H PRN Pain, Mild (1-3) Albuterol 2.5 mg 12/17/18 16:39 Proventil IH Q3HRT PRN Shortness Of Breath Bisacodyl 10 mg 12/17/18 16:39 Dulcolax [place] QDAY PRN Constipation Diphenhydramine HCl 25 mg 12/17/18 22:04 12/17/18 23:00 Benadryl PO 25 mg Q8H PRN Administration Itching; Sleep Hydralazine HCl 5 mg 12/17/18 16:34 Apresoline IV Q4HR PRN Hypertension Ceftriaxone Sodium 1 gm in 50 mls @ 100 mls/hr 12/18/18 10:00 Rocephin/Ns 1 Gm/50 Ml IV 12/19/18 23:59 Q24HR DANIEL Protocol Magnesium Hydroxide 30 ml 12/17/18 16:39 Milk Of Magnesia PO Q4H PRN Constipation Metoclopramide HCl 10 mg 12/17/18 16:39 Reglan PO Q6H PRN Nausea And Vomiting Ondansetron HCl 4 mg 12/17/18 16:39 Zofran IV Q8H PRN Nausea And Vomiting Pravastatin Sodium 20 mg 12/17/18 22:00 12/17/18 21:31 Pravachol PO 20 mg QHS DANIEL Administration Promethazine HCl 25 mg 12/17/18 16:39 Phenergan [place] Q6H PRN Nausea And Vomiting Sodium Chloride 10 ml 12/17/18 16:39 Sodium Chloride Flush Syringe 10 Ml IV PRN PRN LINE FLUSH
[2018-12-18] MEDS ORDERED: APRESOLINE IV PRN (17:40)
[2018-12-18] MEDS: HumaLOG SUB-Q SCH (21:16)
[2018-12-18] MEDS: NAMENDA PO SCH (21:16)
[2018-12-18] MEDS: PRAVACHOL PO SCH (21:17)
[2018-12-18] MEDS: ARICEPT PO SCH (21:17)
[2018-12-19 05:48] LABS: Chol/HDL Ratio 2.16 %
[2018-12-19] MEDS: GLUCOPHAGE XR PO SCH (09:38)
[2018-12-19] MEDS: ROCEPHIN/NS 1 GM/50 ML 1 GM/50 ML BAG IV SCH (09:38)
[2018-12-19] MEDS: NAMENDA PO SCH ×2 (09:38→21:37)
[2018-12-19] MEDS: ALDACTONE PO SCH (09:38)
[2018-12-19] MEDS: ZESTRIL PO SCH (09:38)
[2018-12-19] MEDS: HumaLOG SUB-Q SCH ×4 (09:39→21:37)
[2018-12-19] MEDS ORDERED: MEMANTINE HCL PO SCH (10:00)
[2018-12-19] MEDS ORDERED: DONEPEZIL HCL PO SCH (10:00)
[2018-12-19] MEDS: HALFPRIN EC PO SCH (14:37)
--- NOTE | 2018-12-19 16:03 | Progress Note ---
Assessment and Plan Assessment and plan: -Acute CVA; not a candidate for TPA as the patient is outside the window of thrombolysis Extensive workup, negative, Continue aspirin and statin Neurology evaluation noted and appreciated Acute CVA ruled out Possible TIA Neuro Workup: CT head without contrast; chronic white matter changes chronic focal infarct no acute intracranial abnormality noted MRI : No acute abnormality chronic age-related ischemia MRA brain; intracranial vascular irregularities suggestive of intracranial arthrosclerotic change, motion artifact Carotid Doppler; less than 50% stenosis Echocardiogram; 55-60%, negative bubble study --Metabolic encephalopathy; present on admission Multifactorial, neuro symptoms, advanced age, sepsis Uncontrolled blood pressures Patient is back to baseline mental status --Hypertensive emergency ;Present on admission Blood pressure is more than 200 systolic, no moderate controlContinue current antihypertensives and when necessary medications --Possible urinary tract infection; empiric antibiotics Follow cultures --Diabetes mellitus; Accu-Chek sliding scale: History dated back to insulin Oral hypoglycemics --Bradycardia; hold beta blockers, closely monitor Cardiology consult if needed --DVT prophylaxis; Lovenox Physical therapy occupational . Possible discharge in 1-2 days if stable Plan of care is reviewed with the patient and the son at the bedside History Interval history: Patient Seen and examined medical records reviewed Cultures Positive for Gram-Negative Organisms Sensitivities not reported Patient seems slightly tired Denies nausea or vomiting Denies abdominal pain Vital signs reviewed Hospitalist Physical - Constitutional Vitals: Temp Pulse Resp BP Pulse Ox 98.4 F 72 14 145/60 100 12/19/18 12:10 12/19/18 12:10 12/19/18 12:10 12/19/18 12:10 12/19/18 12:10 General appearance: Present: no acute distress, well-nourished, cachectic - EENT Eyes: Present: PERRL, EOM intact - Neck Neck: Present: supple, normal ROM - Respiratory Respiratory effort: normal Respiratory: bilateral: diminished, negative: rales, rhonchi, wheezing - Cardiovascular Rhythm: regular Heart Sounds: Present: S1 & S2 - Extremities Extremities: no ischemia, No edema - Abdominal General gastrointestinal: soft, non-tender, non-distended, normal bowel sounds - Integumentary Integumentary: Present: clear, warm - Psychiatric Psychiatric: appropriate mood/affect, cooperative - Neurologic Neurologic: moves all extremities Results - Labs CBC & Chem 7: 12/17/18 13:25 07/01/19 13:25 Labs: Laboratory Last Values WBC 6.4 K/mm3 (4.5-11.0) 12/17/18 13:25 RBC 3.77 M/mm3 (3.65-5.03) 12/17/18 13:25 Hgb 12.1 gm/dl (10.1-14.3) 12/17/18 13:25 Hct 36.8 % (30.3-42.9) 12/17/18 13:25 MCV 98 fl (79-97) H 12/17/18 13:25 MCH 32 pg (28-32) 12/17/18 13:25 MCHC 33 % (30-34) 12/17/18 13:25 RDW 14.0 % (13.2-15.2) 12/17/18 13:25 Plt Count 301 K/mm3 (140-440) 12/17/18 13:25 Lymph % (Auto) 38.0 % (13.4-35.0) H 12/17/18 13:25 [place] % (Auto) 10.1 % (0.0-7.3) H 12/17/18 13:25 Eos % (Auto) 2.4 % (0.0-4.3) 12/17/18 13:25 Baso % (Auto) 1.3 % (0.0-1.8) 12/17/18 13:25 Lymph # 2.5 K/mm3 (1.2-5.4) 12/17/18 13:25 [place] # 0.7 K/mm3 (0.0-0.8) 12/17/18 13:25 Eos # 0.2 K/mm3 (0.0-0.4) 12/17/18 13:25 Baso # 0.1 K/mm3 (0.0-0.1) 12/17/18 13:25 Seg Neutrophils % 48.2 % (40.0-70.0) 12/17/18 13:25 Seg Neutrophils # 3.1 K/mm3 (1.8-7.7) 12/17/18 13:25 Sodium 143 mmol/L (137-145) 12/17/18 13:25 Potassium 4.6 mmol/L (3.6-5.0) 12/17/18 13:25 Chloride 104.0 mmol/L (98-107) 12/17/18 13:25 Carbon Dioxide 27 mmol/L (22-30) 12/17/18 13:25 17 mmol/L 12/17/18 13:25 BUN 25 mg/dL (7-17) H 12/17/18 13:25 1.1 mg/dL (0.7-1.2) 12/17/18 13:25 Estimated GFR 57 ml/min 12/17/18 13:25 23 % 12/17/18 13:25 Glucose 126 mg/dL (65-100) H 12/17/18 13:25 POC Glucose 124 (70-105) H 12/19/18 11:37 Calcium 9.2 mg/dL (8.4-10.2) 12/17/18 13:25 Magnesium 2.30 mg/dL (1.7-2.3) 12/17/18 13:25 0.20 mg/dL (0.1-1.2) 12/17/18 13:25 AST 28 units/L (5-40) 12/17/18 13:25 ALT 19 units/L (7-56) 12/17/18 13:25 87 units/L (35-129) 12/17/18 13:25 < 0.010 ng/mL (0.00-0.029) 12/17/18 13:25 7.7 g/dL (6.3-8.2) 12/17/18 13:25 4.0 g/dL (3.9-5) 12/17/18 13:25 1.1 % 12/17/18 13:25 Triglycerides 63 mg/dL (2-149) 12/19/18 04:30 Cholesterol 160 mg/dL (50-199) 12/19/18 04:30 79 mg/dL (50-130) 12/19/18 04:30 74 mg/dL (40-59) H 12/19/18 04:30 2.16 % 12/19/18 04:30 TSH 1.830 mlU/mL (0.270-4.200) 12/17/18 13:25 Free T4 1.07 ng/dL (0.76-1.46) 12/17/18 13:25 Yellow (Yellow) 12/17/18 14:28 Slightly-cloudy (Clear) 12/17/18 14:28 7.0 (5.0-7.0) 12/17/18 14:28 Ur Specific [place] 1.014 (1.003-1.030) 12/17/18 14:28 30 mg/dl mg/dL (Negative) 12/17/18 14:28 50 mg/dL (Negative) 12/17/18 14:28 Neg mg/dL (Negative) 12/17/18 14:28 Neg (Negative) 12/17/18 14:28 Pos (Negative) 12/17/18 14:28 Neg (Negative) 12/17/18 14:28 < 2.0 mg/dL (<2.0) 12/17/18 14:28 Ur Leukocyte Esterase Neg (Negative) 12/17/18 14:28 < 1.0 /HPF (0.0-6.0) 12/17/18 14:28 2.0 /HPF (0.0-6.0) 12/17/18 14:28 U Epithel Cells (Auto) < 1.0 /HPF (0-13.0) 12/17/18 14:28 Few /HPF 12/17/18 14:28 Salicylates < 0.3 mg/dL (2.8-20.0) L 12/17/18 13:25 Acetaminophen < 5.0 ug/mL (10.0-30.0) L 12/17/18 13:25 Plasma/Serum Alcohol < 0.01 % (0-0.07) 12/17/18 13:25 Active Medications - Current Medications Current Medications: Generic Name Dose Route Start Last Admin Trade Name Freq PRN Reason Stop Dose Admin Acetaminophen 650 mg 12/17/18 16:39 Tylenol PO Q4H PRN Pain, Mild (1-3) Albuterol 2.5 mg 12/17/18 16:39 Proventil IH Q3HRT PRN Shortness Of Breath Aspirin 81 mg 12/19/18 12:00 12/19/18 14:37 Halfprin Ec PO 81 mg QDAY DANIEL Administration Bisacodyl 10 mg 12/17/18 16:39 Dulcolax [place] QDAY PRN Constipation Diphenhydramine HCl 25 mg 12/17/18 22:04 12/17/18 23:00 Benadryl PO 25 mg Q8H PRN Administration Itching; Sleep Donepezil HCl 10 mg 12/18/18 22:00 12/18/18 21:17 Aricept PO 10 mg QHS DANIEL Administration Hydralazine HCl 10 mg 12/18/18 17:40 Apresoline IV Q4HR PRN Hypertension Ceftriaxone Sodium 1 gm in 50 mls @ 100 mls/hr 12/18/18 10:00 12/19/18 09:38 Rocephin/Ns 1 Gm/50 Ml IV 12/19/18 23:59 100 mls/hr Q24HR DANIEL Administration Protocol Insulin Human Lispro 0 unit 12/18/18 22:00 12/19/18 11:30 Humalog SUB-Q Not Given ACHS [facility] Protocol Lisinopril 5 mg 12/19/18 10:00 12/19/18 09:38 Zestril PO 5 mg QDAY DANIEL Administration Magnesium Hydroxide 30 ml 12/17/18 16:39 Milk Of Magnesia PO Q4H PRN Constipation Memantine 10 mg 12/18/18 22:00 12/19/18 09:38 Namenda PO 10 mg Q12HR DANIEL Administration Metformin HCl 1,000 mg 12/19/18 10:00 12/19/18 09:38 Glucophage Xr PO 1,000 mg QDAY DANIEL Administration Metoclopramide HCl 10 mg 12/17/18 16:39 Reglan PO Q6H PRN Nausea And Vomiting Ondansetron HCl 4 mg 12/17/18 16:39 Zofran IV Q8H PRN Nausea And Vomiting Pravastatin Sodium 20 mg 12/17/18 22:00 12/18/18 21:17 Pravachol PO 20 mg QHS DANIEL Administration Promethazine HCl 25 mg 12/17/18 16:39 Phenergan [place] Q6H PRN Nausea And Vomiting Quetiapine Fumarate 25 mg 12/18/18 22:00 12/18/18 21:16 Seroquel PO 25 mg HS DANIEL Administration Sodium Chloride 10 ml 12/17/18 16:39 Sodium Chloride Flush Syringe 10 Ml IV PRN PRN LINE FLUSH Spironolactone 25 mg 12/19/18 10:00 12/19/18 09:38 Aldactone PO 25 mg QDAY DANIEL Administration
[2018-12-19] MEDS: ARICEPT PO SCH (21:37)
[2018-12-19] MEDS: PRAVACHOL PO SCH (21:37)
[2018-12-20] MEDS: HumaLOG SUB-Q SCH ×4 (08:30→21:56)
--- NOTE | 2018-12-20 09:03 | Progress Note ---
Assessment and Plan Assessment and plan: --Sepsis secondary to urinary tract infection; urine cultures Klebsiella Continue Rocephin, DC home on oral cephalosporins Supportive care --Acute CVA ruled out not a candidate for TPA as the patient is outside the window of thrombolysis Extensive workup, negative, Continue aspirin and statin Neurology evaluation noted and appreciated Neuro Workup negative; no CVA CT head without contrast; chronic white matter changes chronic focal infarct no acute intracranial abnormality noted MRI : No acute abnormality chronic age-related ischemia MRA brain; intracranial vascular irregularities suggestive of intracranial arthrosclerotic change, motion artifact Carotid Doppler; less than 50% stenosis Echocardiogram; 55-60%, negative bubble study --Possible TIA; continue aspirin and statin --Metabolic encephalopathy; present on admission Multifactorial, neuro symptoms, advanced age, sepsis Uncontrolled blood pressures Supportive care --Hypertensive emergency ;Present on admission Blood Pressures moderate control --Diabetes mellitus; Accu-Chek sliding scale: History dated back to insulin Oral hypoglycemics --Bradycardia; metoprolol discontinued Bradycardia resolved monitor off beta blockers --DVT prophylaxis; [facility] occupational . [facility] Plan of care is reviewed with the patient and her son at the bedside History Interval history: Patient seen and examined medical records reviewed Complaints of generalized weakness Vital signs noted On IV antibiotics for UTI Alert awake responding appropriately Not in acute distress Hospitalist Physical - Constitutional Vitals: Temp Pulse Resp BP Pulse Ox 98.4 F 80 16 137/61 99 12/20/18 07:51 12/20/18 07:51 12/20/18 07:51 12/20/18 07:51 12/20/18 07:51 General appearance: Present: no acute distress, well-nourished, cachectic - EENT Eyes: Present: PERRL, EOM intact - Neck Neck: Present: supple, normal ROM - Respiratory Respiratory effort: normal Respiratory: bilateral: diminished, negative: rales, rhonchi, wheezing - Cardiovascular Rhythm: regular Heart Sounds: Present: S1 & S2 - Extremities Extremities: no ischemia, No edema - Abdominal General gastrointestinal: soft, non-tender, non-distended, normal bowel sounds - Integumentary Integumentary: Present: clear, warm - Psychiatric Psychiatric: appropriate mood/affect, cooperative - Neurologic Neurologic: CNII-XII intact, moves all extremities Results - Labs CBC & Chem 7: 12/17/18 13:25 07/01/19 13:25 Labs: Laboratory Last Values WBC 6.4 K/mm3 (4.5-11.0) 12/17/18 13:25 RBC 3.77 M/mm3 (3.65-5.03) 12/17/18 13:25 Hgb 12.1 gm/dl (10.1-14.3) 12/17/18 13:25 Hct 36.8 % (30.3-42.9) 12/17/18 13:25 MCV 98 fl (79-97) H 12/17/18 13:25 MCH 32 pg (28-32) 12/17/18 13:25 MCHC 33 % (30-34) 12/17/18 13:25 RDW 14.0 % (13.2-15.2) 12/17/18 13:25 Plt Count 301 K/mm3 (140-440) 12/17/18 13:25 Lymph % (Auto) 38.0 % (13.4-35.0) H 12/17/18 13:25 [place] % (Auto) 10.1 % (0.0-7.3) H 12/17/18 13:25 Eos % (Auto) 2.4 % (0.0-4.3) 12/17/18 13:25 Baso % (Auto) 1.3 % (0.0-1.8) 12/17/18 13:25 Lymph # 2.5 K/mm3 (1.2-5.4) 12/17/18 13:25 [place] # 0.7 K/mm3 (0.0-0.8) 12/17/18 13:25 Eos # 0.2 K/mm3 (0.0-0.4) 12/17/18 13:25 Baso # 0.1 K/mm3 (0.0-0.1) 12/17/18 13:25 Seg Neutrophils % 48.2 % (40.0-70.0) 12/17/18 13:25 Seg Neutrophils # 3.1 K/mm3 (1.8-7.7) 12/17/18 13:25 Sodium 143 mmol/L (137-145) 12/17/18 13:25 Potassium 4.6 mmol/L (3.6-5.0) 12/17/18 13:25 Chloride 104.0 mmol/L (98-107) 12/17/18 13:25 Carbon Dioxide 27 mmol/L (22-30) 12/17/18 13:25 17 mmol/L 12/17/18 13:25 BUN 25 mg/dL (7-17) H 12/17/18 13:25 1.1 mg/dL (0.7-1.2) 12/17/18 13:25 Estimated GFR 57 ml/min 12/17/18 13:25 23 % 12/17/18 13:25 Glucose 126 mg/dL (65-100) H 12/17/18 13:25 POC Glucose 109 (70-105) H 12/20/18 07:58 Calcium 9.2 mg/dL (8.4-10.2) 12/17/18 13:25 Magnesium 2.30 mg/dL (1.7-2.3) 12/17/18 13:25 0.20 mg/dL (0.1-1.2) 12/17/18 13:25 AST 28 units/L (5-40) 12/17/18 13:25 ALT 19 units/L (7-56) 12/17/18 13:25 87 units/L (35-129) 12/17/18 13:25 < 0.010 ng/mL (0.00-0.029) 12/17/18 13:25 7.7 g/dL (6.3-8.2) 12/17/18 13:25 4.0 g/dL (3.9-5) 12/17/18 13:25 1.1 % 12/17/18 13:25 Triglycerides 63 mg/dL (2-149) 12/19/18 04:30 Cholesterol 160 mg/dL (50-199) 12/19/18 04:30 79 mg/dL (50-130) 12/19/18 04:30 74 mg/dL (40-59) H 12/19/18 04:30 2.16 % 12/19/18 04:30 TSH 1.830 mlU/mL (0.270-4.200) 12/17/18 13:25 Free T4 1.07 ng/dL (0.76-1.46) 12/17/18 13:25 Yellow (Yellow) 12/17/18 14:28 Slightly-cloudy (Clear) 12/17/18 14:28 7.0 (5.0-7.0) 12/17/18 14:28 Ur Specific [place] 1.014 (1.003-1.030) 12/17/18 14:28 30 mg/dl mg/dL (Negative) 12/17/18 14:28 50 mg/dL (Negative) 12/17/18 14:28 Neg mg/dL (Negative) 12/17/18 14:28 Neg (Negative) 12/17/18 14:28 Pos (Negative) 12/17/18 14:28 Neg (Negative) 12/17/18 14:28 < 2.0 mg/dL (<2.0) 12/17/18 14:28 Ur Leukocyte Esterase Neg (Negative) 12/17/18 14:28 < 1.0 /HPF (0.0-6.0) 12/17/18 14:28 2.0 /HPF (0.0-6.0) 12/17/18 14:28 U Epithel Cells (Auto) < 1.0 /HPF (0-13.0) 12/17/18 14:28 Few /HPF 12/17/18 14:28 Salicylates < 0.3 mg/dL (2.8-20.0) L 12/17/18 13:25 Acetaminophen < 5.0 ug/mL (10.0-30.0) L 12/17/18 13:25 Plasma/Serum Alcohol < 0.01 % (0-0.07) 12/17/18 13:25 Active Medications - Current Medications Current Medications: Generic Name Dose Route Start Last Admin Trade Name Freq PRN Reason Stop Dose Admin Acetaminophen 650 mg 12/17/18 16:39 Tylenol PO Q4H PRN Pain, Mild (1-3) Albuterol 2.5 mg 12/17/18 16:39 Proventil IH Q3HRT PRN Shortness Of Breath Aspirin 81 mg 12/19/18 12:00 12/19/18 14:37 Halfprin Ec PO 81 mg QDAY DANIEL Administration Bisacodyl 10 mg 12/17/18 16:39 Dulcolax MD QDAY PRN Constipation Diphenhydramine HCl 25 mg 12/17/18 22:04 12/17/18 23:00 Benadryl PO 25 mg Q8H PRN Administration Itching; Sleep Donepezil HCl 10 mg 12/18/18 22:00 12/19/18 21:37 Aricept PO 10 mg QHS DANIEL Administration Hydralazine HCl 10 mg 12/18/18 17:40 12/20/18 06:04 Apresoline IV 10 mg Q4HR PRN Administration Hypertension Ceftriaxone Sodium 1 gm in 50 mls @ 100 mls/hr 12/20/18 10:00 Rocephin/Ns 1 Gm/50 Ml IV Q24HR DANIEL Protocol Insulin Human Lispro 0 unit 12/18/18 22:00 12/19/18 21:37 Humalog SUB-Q 2 unit ACHS DANIEL Administration Protocol Lisinopril 5 mg 12/19/18 10:00 12/19/18 09:38 Zestril PO 5 mg QDAY DANIEL Administration Magnesium Hydroxide 30 ml 12/17/18 16:39 Milk Of Magnesia PO Q4H PRN Constipation Memantine 10 mg 12/18/18 22:00 12/19/18 21:37 Namenda PO 10 mg Q12HR DANIEL Administration Metformin HCl 1,000 mg 12/19/18 10:00 12/19/18 09:38 Glucophage Xr PO 1,000 mg QDAY DANIEL Administration Metoclopramide HCl 10 mg 12/17/18 16:39 Reglan PO Q6H PRN Nausea And Vomiting Ondansetron HCl 4 mg 12/17/18 16:39 Zofran IV Q8H PRN Nausea And Vomiting Pravastatin Sodium 20 mg 12/17/18 22:00 12/19/18 21:37 Pravachol PO 20 mg QHS DANIEL Administration Promethazine HCl 25 mg 12/17/18 16:39 Phenergan MD Q6H PRN Nausea And Vomiting Quetiapine Fumarate 25 mg 12/18/18 22:00 12/19/18 21:37 Seroquel PO 25 mg HS DANIEL Administration Sodium Chloride 10 ml 12/17/18 16:39 Sodium Chloride Flush Syringe 10 Ml IV PRN PRN LINE FLUSH Spironolactone 25 mg 12/19/18 10:00 12/19/18 09:38 Aldactone PO 25 mg QDAY DANIEL Administration
[2018-12-20] MEDS: ALDACTONE PO SCH (09:19)
[2018-12-20] MEDS: HALFPRIN EC PO SCH (09:19)
[2018-12-20] MEDS: ZESTRIL PO SCH (09:20)
[2018-12-20] MEDS: NAMENDA PO SCH ×2 (09:21→21:56)
[2018-12-20] MEDS: ROCEPHIN/NS 1 GM/50 ML 1 GM/50 ML BAG IV SCH (11:19)
--- NOTE | 2018-12-20 11:29 | Progress Note ---
Assessment and Plan Ms. Sapp seems more fresh and alert and appropriate today.She was seen by me two days ago for few seconds of unresponsiveness and sleepiness whcih I believed was a sleep attack. Possibility of seizure was ruled out through detail history of the events from family members and also from patient. She was found to have elevated MCV and also peripheral neuropathy which was secondary to chronic diabetes and vit b12 deficiency. I recommended that vit b12 should be started 100mcgm im q month.She developed UTI while in the hospital. Currently being treated with IV antibiotics. PHYSICAL EXAMINATION : Alert and appropriate, answers questions appropriately and insight into her condition.. Knows who the president is, knows the season.Has clear idea about social and family dynamics. Hear- normal rate and rhythm. Cranial nerves are all within normal limit. No asymmetry of strength or reflexes with bilateral down going toes Impression. An episode of sleep attack, brought to the hospital on stroke code, Work up negative for acute stroke. Patient has been placed on Aspirin, inter current UTI, getting antibiotics. RECOMMENDATION: . She should be started on VIT b12 1000mcgm im q month,should get the first dose while in the hospital Can go home on oral antibiotics when UA looks better Objective - Vital Sign Vital Signs - 12hr 12/19/18 12/20/18 12/20/18 23:35 03:00 03:38 Temperature 98.4 F 98.4 F Pulse Rate 81 68 65 Respiratory 18 19 Rate Blood Pressure 125/39 169/65 O2 Sat by Pulse 99 99 Oximetry 12/20/18 12/20/18 12/20/18 06:00 06:04 07:51 Temperature 98.4 F Pulse Rate 61 78 80 Respiratory 16 Rate Blood Pressure 168/100 137/61 O2 Sat by Pulse 100 99 Oximetry 12/20/18 12/20/18 09:19 09:20 Temperature Pulse Rate 80 80 Respiratory Rate Blood Pressure 137/61 137/61 O2 Sat by Pulse Oximetry - Laboratory Findings CBC and BMP: 12/17/18 13:25 12/17/18 13:25 Abnormal Lab Findings: Abnormal Labs 12/17/18 12/17/18 12/17/18 13:20 13:25 13:25 MCV 98 H Lymph % (Auto) 38.0 H [place] % (Auto) 10.1 H BUN 25 H Glucose 126 H POC Glucose 146 H HDL Cholesterol Salicylates Acetaminophen 12/17/18 12/17/18 12/18/18 13:25 13:25 15:03 MCV Lymph % (Auto) [place] % (Auto) BUN Glucose POC Glucose 214 H HDL Cholesterol Salicylates < 0.3 L Acetaminophen < 5.0 L 12/18/18 12/18/18 12/19/18 17:32 21:05 04:30 MCV Lymph % (Auto) [place] % (Auto) BUN Glucose POC Glucose 190 H 324 H HDL Cholesterol 74 H Salicylates Acetaminophen 12/19/18 12/19/18 12/19/18 08:28 11:37 17:16 MCV Lymph % (Auto) [place] % (Auto) BUN Glucose POC Glucose 127 H 124 H 109 H HDL Cholesterol Salicylates Acetaminophen 12/19/18 12/20/18 20:48 07:58 MCV Lymph % (Auto) [place] % (Auto) BUN Glucose POC Glucose 175 H 109 H HDL Cholesterol Salicylates Acetaminophen
[2018-12-20] MEDS: GLUCOPHAGE XR PO SCH (11:30)
[2018-12-20] MEDS ORDERED: VITAMIN B-12 IM ONE (11:33)
[2018-12-20] MEDS: PRAVACHOL PO SCH (21:56)
[2018-12-20] MEDS: ARICEPT PO SCH (21:56)
[2018-12-21] MEDS: HumaLOG SUB-Q SCH ×2 (10:31→13:44)
[2018-12-21] MEDS: ALDACTONE PO SCH (10:39)
[2018-12-21] MEDS: HALFPRIN EC PO SCH (10:39)
[2018-12-21] MEDS: ZESTRIL PO SCH (10:39)
[2018-12-21] MEDS: NAMENDA PO SCH (10:39)
[2018-12-21] MEDS: ROCEPHIN/NS 1 GM/50 ML 1 GM/50 ML BAG IV SCH (10:40)
[2018-12-21] MEDS ORDERED: APRESOLINE IV ONE (11:54)
--- NOTE | 2018-12-21 12:03 | Discharge Summary ---
Providers - Providers Date of Admission: 12/17/18 16:39 Date of discharge: 12/21/18 Attending physician: CHELLY LOPES 12/17/18 Consult to Physician [CONS] Routine Comment: Consulting Provider: GABRIEL WORLEY Physician Instructions: Reason For Exam: cva 12/17/18 16:39 Consult to Case Management [CONS] Routine Services Needed at Discharge: Other Notified:: returned case inspector Additional Physician Instructions: D/C Planning Occupational Therapy Evaluate and Treat [CONS] Routine Comment: Reason For Exam: Neuro deficits Physical Therapy Evaluation and Treat [CONS] Routine Comment: Reason For Exam: Neuro deficits Primary care physician: SUBHASH LÓPEZ Hospitalization Reason for admission: altered level of consciousness, hypertensive emergency Condition: Stable Pertinent studies: Neuro Workup negative; no CVA CT head without contrast; chronic white matter changes chronic focal infarct no acute intracranial abnormality noted MRI : No acute abnormality chronic age-related ischemia MRA brain; intracranial vascular irregularities suggestive of intracranial arthrosclerotic change, motion artifact Carotid Doppler; less than 50% stenosis Echocardiogram; 55-60%, negative bubble study Hospital course: 83 [facility]O Female [facility] Resident with HTN, DM, Alzheimers Dementia, CVA, Debility is admitted through emergency room with altered level of consciousness . Patient has history of Dementia and unable to provide detailed history.as per staff the patient was in her usual state of health upon waking this morning around 0800 hrs. Pt was noticed by [facility] staff to be lying on the couch, unresponsive, unable to speak around lunchtime. EMS notified, and uopn arrival the patient was found to be in distress and transported to [facility]. Pt seen and evaluated in ED and a code stroke was called. Pt found to have symptoms consistent with CVA, as well as Encephalopathy, UTI, and Hypertensive emergency with SBP of 216/94. Pt admitted to telemetry and initiated on CVA protocol with permissive HTN overnight. Patient had extensive neurological workup which was negative as mentioned above Patient's mental status improved, urine cultures were positive for Klebsiella pneumonia, and initiated IV Rocephin and received Procrit fibrosis After the sensitivities had chest patient is being discharged on oral Ceftin for 5 days, total 10 days of antibiotics The patient is comfortable in no new complaints Vital signs stable Physical exam unremarkable Hemodynamically and clinically stable at discharge Patient's blood sugars are much, addressed. Metformin And start metformin when blood sugars are high. Discharge diagnosis; --Sepsis secondary to urinary tract infection; urine cultures Klebsiella Patient received 5 days of Rocephin, DC home on Ceftin for 5 more days --Acute CVA ruled out; no acute CVA not a candidate for TPA as the patient is outside the window of thrombolysis Neurology evaluated, neuro workup is negative, no CVA Neuro Workup negative; no CVA CT head without contrast; chronic white matter changes chronic focal infarct no acute intracranial abnormality noted MRI : No acute abnormality chronic age-related ischemia MRA brain; intracranial vascular irregularities suggestive of intracranial arthrosclerotic change, motion artifact Carotid Doppler; less than 50% stenosis Echocardiogram; 55-60%, negative bubble study --Possible TIA; continue aspirin and statin --Metabolic encephalopathy; present on admission Multifactorial, back to baseline --Hypertensive emergency ;Present on admission Blood Pressures significantly improved --Diabetes mellitus; Accu-Chek sliding scale: The patient's blood sugars in the lower veins probably secondary to poor oral intake hold Metformin --DVT prophylaxis; Lovenox patient received physical therapy; no PT needs Possible discharge back to [facility] [place] [facility] if stable [facility] back to [facility] [place] [facility] today Stable at discharge Disposition: [id number] ANOTHER TYPE [facility]TH[facility] Time spent for discharge: 32 Core Measure Documentation - Palliative Care Palliative Care/ Comfort Measures: Not Applicable - Core Measures Any of the following diagnoses?: none Exam - Constitutional Vitals: Temp Pulse Resp BP Pulse Ox 98.3 F 59 L 18 176/63 100 12/21/18 07:16 12/21/18 10:39 12/21/18 07:16 12/21/18 10:39 12/21/18 07:16 General appearance: Present: no acute distress - EENT Eyes: Present: PERRL, EOM intact - Neck Neck: Present: supple, normal ROM - Respiratory Respiratory effort: normal Respiratory: bilateral: diminished, negative: rales, rhonchi, wheezing - Cardiovascular Rhythm: regular Heart Sounds: Present: S1 & S2 - Extremities Extremities: no ischemia, No edema - Abdominal General gastrointestinal: Present: soft, non-tender, non-distended, normal bowel sounds - Integumentary Integumentary: Present: clear, warm - Musculoskeletal Musculoskeletal: strength equal bilaterally - Psychiatric Psychiatric: appropriate mood/affect, cooperative - Neurologic Neurologic: CNII-XII intact, moves all extremities Plan Activity: advance as tolerated, fall precautions Diet: diabetic Special Instructions: physical therapy Additional Instructions: Fall Precautions. Hold Metformin [Patient's blood sugars in the lower range]Resume as needed Follow up with: BAILEY UNDERWOOD MD [Staff Physician] - 3-5 Days Prescriptions: Aspirin EC 81 mg PO QDAY #30 tablet. cefUROXime [Ceftin] 250 mg PO Q12H #10 tablet
[2018-12-21 12:07] VITALS: BP 158/60
[2018-12-21] MEDS ORDERED: APRESOLINE PO SCH (14:00)
== END 2018-12-21 14:15 | disposition home or self-care (01) | DRG 871 ==
LOC: ED 12:22 → 4A 16:39
PROVIDERS: ADMIT Internal Medicine; ATTEND Internal Medicine
DX: A41.9 Sepsis, unspecified organism (principal); G93.41 Metabolic encephalopathy; N39.0 Urinary tract infection, site not specified; I16.1 Hypertensive emergency; G45.9 Transient cerebral ischemic attack, unspecified; R53.81 Other malaise; E11.9 Type 2 diabetes mellitus without complications; I10 Essential (primary) hypertension; G30.9 Alzheimer's disease, unspecified; F02.80 Dementia in other diseases classified elsewhere, unspecified severity, without behavioral disturbance, psychotic disturbance, mood disturbance, and anxiety; B96.1 Klebsiella pneumoniae [K. pneumoniae] as the cause of diseases classified elsewhere; Z86.73 Personal history of transient ischemic attack (TIA), and cerebral infarction without residual deficits; Z79.899 Other long term (current) drug therapy
CPT/HCPCS: 36415; 51701; 70450; 70544; 70551; 80053; 80061; 80320; 81001; 82962; 83735; 84439; 84443; 84484; 85025; 87076; 87086; 87186; 93005; 93010; 93306; 93880; 96365; G0378; A9270-GY; G0480; J0360; J0696; J1815; J3420